=== PATIENT | female | born 1960 | race Asian ===

== ENCOUNTER 2017-04-24 16:51 | Emergency (ER) | payer MEDICAID ==
[~2017-04-24] VITALS: Ht 154.9 cm; Wt 78.0 kg
[2017-04-24 18:55] VITALS: BP 120/66
== END 2017-04-24 18:55 | disposition home or self-care (01) ==
LOC: ED 16:51
DX: M15.9 Polyosteoarthritis, unspecified (principal)
CPT/HCPCS: J1885